=== PATIENT | male | born 1980 | race African-American/Black ===

== ENCOUNTER 2020-08-24 12:37 | Emergency (ER) | payer OTHER ==
[2020-08-24 12:54] VITALS: BMI 22.4
[2020-08-24] MEDS ORDERED: SODIUM CHLORIDE 0.9% 500 ML INFUS.BAG IV ONE (13:31)
[2020-08-24] MEDS ORDERED: FAMOTIDINE 20 MG/50 ML IVPB 20 MG/50 ML MG IVPB ONE ×2 (13:31→13:45)
[2020-08-24 13:41] LABS: BASO % 0.8 % (0-2.0); EOS % 0.1 % (0-4.5); HEMATOCRIT 45.8 % (35.4-49); HEMOGLOBIN 15.2 GM/dL (11.7-16.9); MCH 28.9 pg (25.7-33.7); MCHC 33.1 g/dl (32.0-35.9); MEAN CELL VOLUME 87.5 fl (80-96); MEAN PLT VOLUME 8.7 fl (7.5-11.1); MONO % 9.7 % (3.8-10.2); NEUT % 54.4 % (42.8-82.8); PLATELET COUNT 236 K/MM3 (134-434); RBC 5.24 M/mm3 (4.00-5.60); RDW 14.1 % (11.9-15.9); WHITE BLOOD COUNT 4.3 K/mm3 (4.0-10.0)
--- NOTE | 2020-08-24 13:45 | PDOC ---
History of Present Illness - General Chief Complaint: Pain Stated Complaint: ABDOMINAL PAIN Time Seen by Provider: 08/24/20 13:11 History Source: Patient Exam Limitations: No Limitations - History of Present Illness Initial Comments: 08/24/20 13:41 39M PMH HBV BIBEMS for 5 days of epigastric pain (burning, constant, w/ bouts of worsening, radiates up the chest), n/v. Seen at [facility] for same complaint on 08/19/20 where he received labs and CT A/P with negative workup and discharged with zofran. States he drinks etoh 1-2 pints of beer at most. Denies cp/sob, f/c. NKDA, poor medical f/u. + etoh, tobacco, and marijuana use; denies other ilicit drug use; has not been able to use any substances since symptom onset. Past History - Medical History Allergies/Adverse Reactions: Allergies Allergy/AdvReac Type Severity Reaction Status Date / Time No Known Allergies Allergy Verified 08/24/20 12:51 Home Medications: Ambulatory Orders Famotidine [Pepcid -] 20 mg PO DAILY #14 tablet 08/24/20 Ondansetron [Zofran *Odt*] 4 mg SL TID #28 od.tablet 08/24/20 COPD: No - Psycho-Social/Smoking History Smoking History: Current every day smoker Have you smoked in the past 12 months: Yes Information on smoking cessation initiated: No - Substance Abuse Hx (Audit-C & DAST Scrn) How often the patient has a drink containing alcohol: 4 0r more times/wk Number of drinks the patient has on a typical day: 10 or more How often the patient has six or more drinks on one occasion: Daily or almost daily Score: In Men: 4 or > Positive; In Women: 3 or > Positive: 12 Screen Result (Pos requires Nsg. Audit-10AR): Positive In the last yr the pt used illegal drug/Rx for NonMed reason: Yes Score: Yes response is considered Positive: 1 Screen Result (Positive result requires Nsg. DAST-10): Positive Review of Systems - Review of Systems Comments:: CONSTITUTIONAL: Denies F / C HEENT: Denies headache, sore throat, rhinorrhea RESP: Denies SOB, cough CARD: Denies chest pain GI: + epigastric pain, n/v, PO intolerance. : Denies dysuria NEURO: Denies numbness, tingling, weakness MSK: Denies back pain SKIN: Denies rashes *Physical Exam - Vital Signs Last Vital Signs Temp Pulse Resp BP Pulse Ox 97.4 F L 61 18 114/35 L 100 08/24/20 12:51 08/24/20 12:51 08/24/20 12:51 08/24/20 12:51 08/24/20 12:51 - Physical Exam GEN: Well appearing, moderately uncomfortable. AAOx3. HEENT: NC/AT, EOMI, PERRL. Normal voice. Supple neck w/ FROM. CV: S1/S2, RRR, no m/r/g LUNG: CTAB, no wheezes, crackles, rales, rhonchi. GI: Epigastric TTP, soft, nd, +BS, no guarding, no rebound. No masses. Neg CVAT b/l. MSK: No obvious deformities of all extremities. SKIN: Warm, dry, no rashes appreciated. PSYCH: Normal mood and affect. NEURO: Moving all extremities well. ED Treatment Course - LABORATORY CBC & Chemistry Diagram: 08/24/20 13:15 08/24/20 13:15 - RADIOLOGY Radiology Studies Ordered: Category Date Time Status CXRPORT [CHEST X-RAY PORTABLE*] [RAD] Stat Radiology 08/24/20 13:33 Ordered Medical Decision Making - Medical Decision Making 39M PMH HBV BIBEMS for 5 days of epigastric pain, n/v, po intolerance. DDX - pancreatitis, gastritis, PUD, less likely colitis. Unlikely ACS. - CBC, CMP, Lipase - EKG - anti-emetics, pain control, fluids - reassess and dispo 08/24/20 14:31 labs reviewed elevated lipase reassess after meds, PO challange EKG 14:07 HR 51 intervals and axis nl, sinus, no FLAVIO/D, no TWI 08/24/20 16:27 pt able to tolerate PO after meds discussed discharge with patient who is amenable. Advised to follow a clear liquid diet in small amounts and to slowly advance as tolerated. questions and concerns addressed. Return precautions advised. DC home w/ Rx sent, PCP and GI referral for f/u. Discharge - Discharge Information Problems reviewed: Yes Clinical Impression/Diagnosis: Epigastric pain Nausea and vomiting Qualifiers: Vomiting type: unspecified Vomiting Intractability: non-intractable Qualified Code(s): R11.2 - Nausea with vomiting, unspecified Condition: Stable Disposition: HOME - Admission No - Additional Discharge Information Prescriptions: Famotidine [Pepcid -] 20 mg PO DAILY #14 tablet Ondansetron [Zofran *Odt*] 4 mg SL TID #28 od.tablet - Follow up/Referral Referrals: [facility] [place] [facility] [place] [Provider Group] William Bailey DO [Staff Physician] - - Patient Discharge Instructions Patient Printed Discharge Instructions: Clear Liquid Diet Additional Instructions: We are sending two medications to your pharmacy; 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 Take Tylenol as directed on the label for pain. You can start eating as tolerated but only with clear liquids first. After a few days, if you are starting to feel better, you can slowly advance to a more solid diet. Follow up with Primary Care regarding this ED visit in the next 10 days. If you do not have a primary care doctor or are in need of a new one, we have made you a referral to the [facility]. You may call and schedule an appointment at the number provided. Follow up with Gastroenterology in the next 10 days. We have referred you to Dr. Bailey, call the number below to schedule an appointment. Return to the nearest Emergency Department if you experience new or worsening symptoms, including but not limited to: - fevers - blood in the vomit - severe pain - inability to take anything by mouth - anything that concerns you - Post Discharge Activity
[2020-08-24 14:08] LABS: ALBUMIN 4.1 g/dl (3.4-5.0); BILIRUBIN,TOTAL 0.8 mg/dL (0.2-1); BLOOD UREA NITROGEN 14.8 mg/dL (7-18); CALCIUM 9.5 mg/dL (8.5-10.1); POTASSIUM 5.3 mmol/L (3.5-5.1); TOT PROT 7.6 g/dl (6.4-8.2)
[2020-08-24] MEDS ORDERED: ACETAMINOPHEN 1000 MG/100 ML VIAL (NON FORMULARY) IVPB ONE (14:20)
[2020-08-24] MEDS ORDERED: ONDANSETRON 4 MG/2 ML VIAL IVPUSH ONE (14:20)
[2020-08-24] MEDS ORDERED: MAG HYDROX/AL HYDROX/SIMETH 30 ML UNIT-DOSE CUP PO ONE (14:20)
--- NOTE | 2020-08-24 14:20 | PDOC ---
Documentation entered by Chris Sadler SCRIBE, acting as scribe for Brandon Renee MD. Brandon Renee MD: This documentation has been prepared by the Doroteo mayo Xhesika, SCRIBE, under my direction and personally reviewed by me in its entirety. I confirm that the documentation accurately reflects all work, treatment, procedures, and medical decision making performed by me. Attending Attestation - Resident Resident Name: Kale Ng - ED Attending Attestation I have performed the following: I have examined & evaluated the patient, The case was reviewed & discussed with the resident, I agree w/resident's findings & plan, Exceptions are as noted - HPI HPI: 08/24/20 13:46 The patient is a 39y/o M with a pmh of HBV who presents to the ED BIBEMS for constant, burning epigastric pain associated with nausea and vomiting. Pt was seen at [facility] on Saturday (08/19/20) for same complaints and he received zofran, labs and CT which were unremarkable and was dxc home. Pt denies CP, SOB, headache or dizziness. Denies fevers, chills, cough, diarrhea or constipation. Denies any URI symptoms. Allergies: NKDA - Physicial Exam PE: 08/24/20 14:16 EXAMINATION CONSTITUTIONAL: awake, alert; well-nourished; in no apparent distress HEAD: Normocephalic; atraumatic EYES: PERRL; EOM intact, no icterus ENMT: External appears normal; normal oropharynx NECK: Supple; non-tender; no cervical lymphadenopathy CARD: Normal S1, S2; no murmurs, rubs, or gallops RESP: Normal chest excursion with respiration; breath sounds clear and equal bilaterally; no wheezes, rhonchi, or rales ABD: Soft, non-distended; + minimal epigatric ttp, no g/r EXT: Normal ROM in all four extremities; non-tender to palpation; distal pulses intact SKIN: Warm, dry, no rash NEURO: No focal neurological deficiencies. - Medical Decision Making 08/24/20 14:19 39-year-old male with history of drug abuse presents with epigastric pain, nonbloody and questionably bilious vomiting. Patient underwent a an extensive GI work-up at [facility] including CT of abdomen pelvis which was noted to be normal. In the ER, patient is awake and alert, nontoxic- appearing, with mild epigastric tenderness to deep palpation only. Differential diagnosis includes gastritis versus pancreatitis versus colitis. I do not suspect ACS. Will administer H2 blockers and Zofran. Will obtain CBC/CMP/lipase. Will reassess. 08/24/20 15:01 Patient with lipase of 617 (less than 3 times the upper limit of normal.) Early pancreatitis is in differential. Will hydrate. Will administer meds for symptomatic relief. Will reassess. Discharge - Discharge Information Problems reviewed: Yes Clinical Impression/Diagnosis: Epigastric pain Nausea and vomiting Qualifiers: Vomiting type: unspecified Vomiting Intractability: non-intractable Qualified Code(s): R11.2 - Nausea with vomiting, unspecified Condition: Stable Disposition: HOME - Additional Discharge Information Prescriptions: Famotidine [Pepcid -] 20 mg PO DAILY #14 tablet Ondansetron [Zofran *Odt*] 4 mg SL TID #28 od.tablet - Follow up/Referral Referrals: [facility] [place] [facility] [place] [Provider Group] William Bailey DO [Staff Physician] - - Patient Discharge Instructions Patient Printed Discharge Instructions: Clear Liquid Diet Additional Instructions: We are sending two medications to your pharmacy; 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 Take Tylenol as directed on the label for pain. You can start eating as tolerated but only with clear liquids first. After a few days, if you are starting to feel better, you can slowly advance to a more solid diet. Follow up with Primary Care regarding this ED visit in the next 10 days. If you do not have a primary care doctor or are in need of a new one, we have made you a referral to the [facility]. You may call and schedule an appointment at the number provided. Follow up with Gastroenterology in the next 10 days. We have referred you to Dr. Bailey, call the number below to schedule an appointment. Return to the nearest Emergency Department if you experience new or worsening symptoms, including but not limited to: - fevers - blood in the vomit - severe pain - inability to take anything by mouth - anything that concerns you - Post Discharge Activity
[2020-08-24] MEDS ORDERED: ACETAMINOPHEN INJECTION 100 ML IVPB ONE (14:23)
[2020-08-24] MEDS ORDERED: MAG HYDROX/AL HYDROX/SIMETH 30 ML UNIT-DOSE CUP ONE (14:23)
--- NOTE | 2020-08-24 14:50 | EKG ---
Test Reason : Blood Pressure : / mmHG Vent. Rate : 051 BPM Atrial Rate : 051 BPM P-R Int : 162 ms QRS Dur : 080 ms QT Int : 476 ms P-R-T Axes : 065 063 059 degrees QTc Int : 438 ms SINUS BRADYCARDIA OTHERWISE NORMAL ECG NO PREVIOUS ECGS AVAILABLE Confirmed by Lior Guillaume MD ([id number]) on 08/24/2020 2:50:03 PM Referred By: Confirmed By:Lior Guillaume MD
[2020-08-24 16:59] VITALS: BP 120/68; PULSE 56; TEMP 98.6
== END 2020-08-24 16:40 | disposition home or self-care (01) ==
LOC: JER 12:37
PROC: 3E0333Z Introduction of Anti-inflammatory into Peripheral Vein, Percutaneous Approach (ICD-10-PCS; principal; 2020-08-24)
PROC: 3E033GC Introduction of Other Therapeutic Substance into Peripheral Vein, Percutaneous Approach (ICD-10-PCS; 2020-08-24)
DX: R10.13 Epigastric pain (principal); R11.2 Nausea with vomiting, unspecified
CPT/HCPCS: 36415; 71045-TC-FY; 76705-TC; 80053; 83690; 85025; 93005; 93010; 99285-25; J0131

== ENCOUNTER 2022-11-20 11:48 | Emergency (ER) | payer OTHER ==
[2022-11-20 12:10] VITALS: BP 134/80; PULSE 74; RESP 20; TEMP 98; BMI 24.6
[2022-11-20] MEDS ORDERED: KETOROLAC TROMETHAMINE 30 MG/1 ML VIAL IM ONE (13:12)
[2022-11-20] MEDS ORDERED: IBUPROFEN 400 MG TABLET (FP) PO ONE (13:42)
== END 2022-11-20 13:51 | disposition home or self-care (01) ==
LOC: JERFT 11:48
DX: M54.50 Low back pain, unspecified (principal); V79.50XA Passenger on bus injured in collision with unspecified motor vehicles in traffic accident, initial encounter
CPT/HCPCS: 99281-25